=== PATIENT | female | born 1950 | race American Indian/Alaskan Native ===

== ENCOUNTER 2018-09-13 08:11 | Outpatient (CLI) | payer MEDICARE ==
--- NOTE | 2018-09-13 14:26 | Mammography Report ---
DEXA BONE DENSITY SCAN INDICATION: ON AROMATASE THERAPY. Postmenopausal COMPARISON: None available. LUMBAR SPINE (L1-L4): Bone mineral density (BMD) is 1.247 g/cm2. T-score is +1.0 (standard deviations of Young Adult mean). Z-score is +3.3 (standard deviations of Age Matched mean). LEFT FEMORAL NECK: Bone mineral density (BMD) is 0.969 g/cm2. T-score is +0.1 (standard deviations of Young Adult mean). Z-score is +1.6 (standard deviations of Age Matched mean). IMPRESSION: 1. WHO Classification: Normal bone density. Fracture Risk: Not Increased. Signer Name: Ambrose Dolan MD Signed: 09/13/2018 2:26 PM Workstation Name: [id number]
== END 2018-09-13 08:12 | disposition home or self-care (01) ==
LOC: SPVWC 08:11
PROVIDERS: ATTEND Internal Medicine Hematology & Oncology
DX: C50.312 Malignant neoplasm of lower-inner quadrant of left female breast (principal); Z78.0 Asymptomatic menopausal state
CPT/HCPCS: 77080

== ENCOUNTER 2018-11-16 08:49 | Outpatient (CLI) | payer MEDICARE ==
--- NOTE | 2018-11-16 09:38 | XRay Report ---
RIGHT KNEE, 2 VIEWS INDICATION: RT KNEE PAIN/JOINT PAIN. COMPARISON: None. IMPRESSION: Normal bone mineralization. No evidence for acute fracture or bone lesion. Moderate to severe medial compartment joint space narrowing, articular surface sclerosis and marginal spurring is identified. Mild retropatellar spurring is identified. Minimal spurring in the lateral compartment. The soft tissues are unremarkable. No obvious joint effusion. Signer Name: Levon Giraldo Jr, MD Signed: 11/16/2018 9:33 AM Workstation Name: [id number]
== END 2018-11-16 08:50 | disposition home or self-care (01) ==
LOC: SPVIMAG 08:49
PROVIDERS: ATTEND Internal Medicine Hematology & Oncology
DX: M25.861 Other specified joint disorders, right knee (principal); C50.312 Malignant neoplasm of lower-inner quadrant of left female breast